=== PATIENT | male | born 1985 | race Caucasian/White ===

== ENCOUNTER 2020-08-17 20:43 | Emergency (ER) | payer BC ==
[~2020-08-17] VITALS: Ht 172.7 cm; Wt 78.0 kg
--- NOTE | 2020-08-17 21:03 | PHYS DOC ---
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 Patient states that it started to get more swollen and pronounced last night when he went to bed and this morning when he woke up he noticed it was bright red and he noticed streaking going up his arm. Patient states he became concerned when he felt pain into his armpit area, he had called a friend of his who told him that that is a infection that needs to have antibiotics started immediately. Patient denies any other physical symptoms or complaints, patient denies fever or chills, headaches, visual changes, neurological changes, tingling numbness of the right upper extremity, patient states his pain is a 7/10 on a 1-10 pain scale. Ps states he noticed puss coming from hand infection site. (LILLY LARKIN APRN) Review of Systems Review of Systems 14 body systems of review of systems have been reviewed. See HPI for pertinent positives and negative responses, otherwise all other systems are negative, nonpertinent or noncontributory. (LILLY LARKIN APRN) Current Medications Current Medications no home meds (LILLY LARKIN APRN) Allergies Allergies NKDA (LILLY LARKIN APRN) Physical Exam Physical Exam Constitutional: Well developed, well nourished, no acute distress, non-toxic appearance. [] HENT: Normocephalic, atraumatic, bilateral external ears normal, oropharynx moist, no oral exudates, nose normal. [] Eyes: PERRLA, EOMI, conjunctiva normal, no discharge. [] Neck: Normal range of motion, no tenderness, supple, no stridor. [] Cardiovascular:Heart rate regular rhythm, no murmur [] Lungs & Thorax: Bilateral breath sounds clear to auscultation [] Abdomen: Bowel sounds normal, soft, no tenderness, no masses, no pulsatile masses. [] Skin: Warm, dry, no erythema, no rash. 3mm 3 mm lesion to the right hand center dorsal aspect, draining purulent drainage, redness extends approximately 4 cm in diameter, light pink erythema extends approximately 6 mm in diameter, both dark erythema and light pink erythema diameters were marked with skin marker, there is red streaking traveling upper extremity, lymphadenopathy noted in right axillary, patient has no loss of sensation, full AROM/PROM, patient has no neuro vascular deficits noted, distal cap refill less than 2 seconds Back: No tenderness, no CVA tenderness. [] Extremities: No tenderness, no cyanosis, no clubbing, ROM intact, no edema. [] Neurologic: Alert and oriented X 3, normal motor function, normal sensory function, no focal deficits noted. [] Psychologic: Affect normal, judgement normal, mood normal. [] (LILLY LARKIN APRN) EKG EKG [] (LILLY LARKIN APRN) Radiology/Procedures Radiology/Procedures STATUS: REG ER ORD. PHYSICIAN: LILLY LARKIN APRN REASON: PAIN, INFECTION, R/O OSTEOMYLITIS PROCEDURE: HAND RIGHT 3V Right HAND, VIEWS 3 Indication: Reason: PAIN, INFECTION, R/O OSTEOMYLITIS / Spl. Instructions: OPEN WOUND MID 2ND METACARPAL SURROUNDED BY REDNESS, ? BITE Findings: There is no acute fracture or dislocation. Bony articulations are normal. There is no bony erosion. Mineralization is normal. There is moderate dorsal soft tissue swelling of the hand. There is a 5 mm faint radiodensity in the dorsal soft tissues at the level of the base of the metacarpals which could be a foreign body. IMPRESSION: 1. No radiographic evidence of osteomyelitis. 2. Moderate dorsal soft tissue swelling. Please see above. Electronically signed by: Anil Whitt MD (08/17/2020 10:06 PM) [facility] DICTATED AND SIGNED BY: ANIL WHITT MD DATE: 08/17/202205 CC: LILLY LARKIN APRN; EDSJ; YASMEEN LUNDBERG ~MTH0 0 (LILLY LARKIN APRN) Heart Score Risk Factors: Risk Factors: DM, Current or recent (<one month) smoker, HTN, HLP, family history of CAD, obesity. Risk Scores: Risk Factors: DM, Current or recent (<one month) smoker, HTN, HLP, family h istory of CAD, obesity. (LILLY LARKIN APRN) Course & Med Decision Making Course & Med Decision Making Pertinent Labs and Imaging studies reviewed. (See chart for details) 35yo male, Vital signs stable, physical exam concerning for infectious process of the right upper extremity, there was a 3 mm lesion draining purulent drainage , with streaking up right extremity, lymphadenopathy in the right axilla, and x- ray was ordered to rule out osteomyelitis, an IV was started blood cultures were drawn the patient was given 4.5 g Zosyn, 2 g Rocephin IV, 1 Bactrim DS p.o., 1 500 mg Keflex p.o., 1 L normal saline, Reexamination of the patient, patient states he feels much better, patient still had pain, patient given 1 g of Tylenol and 600 mg of Motrin p.o., patient did not want any medication with narcotics, patient was offered inpatient admission, we made a joint decision to trial outpatient antibiotic treatment, patient gave verbal understanding of strict return to emergency department concerns, will follow with his doctor tomorrow, he understands the reason for drying 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 Patient was given prescriptions for both Bactrim DS and Keflex p.o., patient gave verbal understanding of strict Teodoro starting his prescriptions in the morning and taking them as directed for the next 10 days, patient states he will return to the emergency department if symptoms worsen and understands that he will be admitted for observation and IV antibiotics. Patient was discharged home, I feel the patient is alert and oriented x3 and is able to make his own medical decisions, I feel confident that the patient will return for admission if sympt oms worsen. (LILLY LARKIN APRN) Dragon Disclaimer Dragon Disclaimer This electronic medical record was generated, in whole or in part, using a voice recognition dictation system. (LILLY LARKIN APRN) Departure Departure: Impression: Primary Impression: Abscess of right hand Additional Impressions: Adenopathy Infection of right hand Foreign body (FB) in soft tissue Disposition: 01 DC HOME SELF CARE/HOMELESS Condition: IMPROVED Referrals: YASMEEN LUNDBERG (PCP) Patient Instructions: Abscess Additional Instructions: Please take antibiotics as prescribed, I have drawn a [place] border with a pen around the infection, we have discussed at length about signs and symptoms of worsening infection, please call your doctor tomorrow to let your doctor know that you had this infection going on please return to the emergency department immediately for hospital admission if this infection is getting worse, you have worsening symptoms, or you have other concerns. We have discussed hospital admission, we have made a joint decision to trial antibiotics at home with the understanding that if you fail home antibiotic trial that you will be admitted to the hospital for cellulitis infection of your right hand with adenopathy. EMERGENCY DEPARTMENT GENERAL DISCHARGE INSTRUCTIONS Thank you for coming to [facility] (ED) today and trusting us with you care. We trust that you had a positivie experience in our Emergency Department. If you wish to speak to the department management, you may call the director at [phone]. YOUR FOLLOW UP INSTRUCTIONS ARE FOLLOWS: 1. Do you have a private Doctor? If you do not have a private doctor, please ask for a resource list of physicians or clinics that may be able to assist you with foll ow up care. 2. The Emergency Physician has interpreted your x-rays. The X-Ray specialist will also review them. If there is a change in the findings, you will be notified in 48 hours when at all possible. 3. A lab test or culture has been done, your results will be reviewed and you will be notified if you need a change in treatment. ADDITIONAL INSTRUCTIONS AND INFORMATION: 1. Your care today has been supervised by a physician who is specially trained in emergency care. Many problems require more than one evaluation for a complete diagnosis and treatment. We recommend that you schedule your follow up appointment as re commended to ensure complete treatment of you illness or injury. If you are unable to obtain follow up care and continue to have a problem, or if your condition worsens, we recommend that you return to the ED. 2. We are not able to safely determine your condition over the phone nor are we able to give sound medical advice over the phone. For these safety reasons, if you call for medical advice we will ask you to come to the ED for further evaluation. 3. If you have any questions regarding these discharge instructions please call the ED at [phone]. SAFETY INFORMATION: In the interest of safety, wellness, and injury prevention; we encourage you to wear your sealbelt, if you smoke; quite smoking, and we encourage family to use a protective helmet for bicycling and other sporting events that present an increased risk for head injury. IF YOUR SYMPTOMS WORSEN OR NEW SYMPTOMS DEVELOP, OR YOU HAVE CONCERNS ABOUT YOUR CONDITION; OR IF YOUR CONDITION WORSENS WHILE YOU ARE WAITING FOR YOUR FOLLOW UP APPOINTMENT; EITHER CONTACT YOUR PRIMARY CARE DOCTOR, THE PHYSICIAN WHOSE NAME AND NUMBER YOU WERE GIVEN, OR RETURN TO THE ED IMMEDIATELY. Scripts Cephalexin (KEFLEX) 500 Mg Capsule 500 MG PO QID for RIGHT HAND INFECTION for 10 Days, #40 CAP 0 Refills Prov: LILLY LARKIN APRN 08/17/20 Sulfamethoxazole/Trimethoprim (BACTRIM DS TABLET) 1 Each Tablet 1 TAB PO BID for HAND INFECTION for 10 Days, #20 TAB 0 Refills Prov: LILLY LARKIN APRN 08/17/20 Attending Co-Sign Attending Co-Sign The patient was seen and interviewed as well as examined at the bedside. The chart was reviewed. The case was discussed. Agree with the plan of care. (SEBASTIÁN LAZAR MD) Problem Qualifiers LILLY LARKIN APRN Aug 17, 2020 21:03 SEBASTIÁN LAZAR MD Aug 20, 2020 21:26
[2020-08-17] MEDS ORDERED: SMZ/TMP 800/160MG TABLET. PO ONE (21:30)
[2020-08-17] MEDS ORDERED: PIPERACILLIN/TAZOBACTAM 4.5 GM in IV NORMAL SALINE 50ML 50 ML IV ONE (21:30)
[2020-08-17] MEDS ORDERED: IV NORMAL SALINE 100ML 100 ML ONE (21:32)
[2020-08-17 21:50] LABS: BASO # 0.1 x10^3/uL (0.0-0.2); BASO % 1 % (0-3); EOS # 0.1 x10^3/uL (0.0-0.7); EOS % 1 % (0-3); HEMATOCRIT 35.3 % (39.0-53.0); HEMOGLOBIN 11.1 g/dL (13.0-17.5); LYMPH # 1.9 x10^3/uL (1.0-4.8); LYMPH % 17 % (24-48); MEAN CORPUSCULAR HEMOGLOBIN 19 pg (25-35); MEAN CORPUSCULAR HGB CONC 31 g/dL (31-37); MEAN CORPUSCULAR VOLUME 62 fL (79-100); MONO # 0.9 x10^3/uL (0.0-1.1); MONO % 8 % (0-9); NEUT # 8.5 x10^3uL (1.8-7.7); NEUT % 75 % (31-73); PLATELET COUNT 235 x10^3/uL (140-400); RED CELL DISTRIBUTION WIDTH 16.1 % (11.5-14.5); WHITE BLOOD COUNT 11.5 x10^3/uL (4.0-11.0)
[2020-08-17] MEDS ORDERED: IV NORMAL SALINE 1,000ML 1,000 ML IV ONE (22:00)
[2020-08-17 22:05] LABS: BACTERIA,URINE 0 /HPF (0-FEW); BILIRUBIN,URINE NEG (NEG); CLARITY,URINE CLEAR; COLOR,URINE YELLOW; GLUCOSE,URINE NEG (NEG); NITRITE,URINE NEG (NEG); RBC,URINE 0 /HPF (0-2); UROBILINOGEN,URINE 0.2 mg/dL (0.2 mg/dL); WBC,URINE 0 /HPF (0-4)
[2020-08-17 22:08] LABS: CALCIUM 8.7 mg/dL (8.5-10.1); CREATININE 1.2 mg/dL (0.7-1.3); GFR 68.9; POTASSIUM 3.5 mmol/L (3.5-5.1)
--- NOTE | 2020-08-17 22:08 | RAD ---
Right HAND, VIEWS 3 Indication: Reason: PAIN, INFECTION, R/O OSTEOMYLITIS / Spl. Instructions: OPEN WOUND MID 2ND METACARPAL SURROUNDED BY REDNESS, ? BITE Findings: There is no acute fracture or dislocation. Bony articulations are normal. There is no bony erosion. Mineralization is normal. There is moderate dorsal soft tissue swelling of the hand. There is a 5 mm faint radiodensity in the dorsal soft tissues at the level of the base of the metacarpals which could be a foreign body. IMPRESSION: 1. No radiographic evidence of osteomyelitis. 2. Moderate dorsal soft tissue swelling. Please see above. Electronically signed by: Jonatan Whitt MD (08/17/2020 10:06 PM) [facility]
[2020-08-17 22:14] LABS: ALBUMIN 4.2 g/dL (3.4-5.0); TOTAL BILIRUBIN 0.7 mg/dL (0.2-1.0); TOTAL PROTEIN 8.3 g/dL (6.4-8.2)
[2020-08-17] MEDS ORDERED: IV NORMAL SALINE 50ML 50 ML ONE (22:14)
[2020-08-17] MEDS ORDERED: PIPERACILLIN/TAZOBACTAM 4.5 GM VIAL IV ONE (22:14)
[2020-08-17] MEDS ORDERED: CEPH-264 PO (22:44)
[2020-08-17] MEDS ORDERED: SULF1TAB24 PO (22:44)
[2020-08-17] MEDS ORDERED: IBUPROFEN 600 MG TABLET. PO ONE (23:00)
[2020-08-17] MEDS ORDERED: CEPHALEXIN 250 MG CAPSULE PO ONE (23:00)
[2020-08-17] MEDS ORDERED: ACETAMINOPHEN 500 MG TABLET PO ONE (23:00)
[2020-08-17 23:40] VITALS: BP 103/74
== END 2020-08-17 23:45 | disposition home or self-care (01) ==
LOC: ER 20:43
DX: L02.511 Cutaneous abscess of right hand (principal); R59.9 Enlarged lymph nodes, unspecified; L08.89 Other specified local infections of the skin and subcutaneous tissue; L92.3 Foreign body granuloma of the skin and subcutaneous tissue
CPT/HCPCS: 36415; 73130; 80053; 81001; 83605; 85025; 87040; 96365; 96366; 96367; 99284; J0696; J2543; J7030

== ENCOUNTER → 2021-12-30 | Outpatient (CLI) | payer BC ==
[~2021-12-30] MED LIST: CEPH-264 PO; SULF1TAB24 PO
--- NOTE | 2021-12-30 18:14 | RAD ---
XR FOOT_RIGHT 3 VIEWS DATE: 12/30/2021 5:49 PM INDICATION: Reason: PAIN BRUISING 2ND TOE AREA / Spl. Instructions: / History: COMPARISON: None. FINDINGS: Bones: There is no evidence of acute fracture or dislocation. Joints: The joint spaces are normal. Miscellaneous: None. IMPRESSION: No evidence of acute fracture. Electronically signed by: Vidal Leahy MD (12/30/2021 6:12 PM) [facility]
== END ==
LOC: PMG 17:34
PROVIDERS: ATTEND Nurse Practitioner Family
DX: S99.921A Unspecified injury of right foot, initial encounter (principal); X58.XXXA Exposure to other specified factors, initial encounter; Y93.89 Activity, other specified; Y92.89 Other specified places as the place of occurrence of the external cause; Y99.8 Other external cause status
CPT/HCPCS: 73630